=== PATIENT | male | born 1950 | race Caucasian/White ===

== ENCOUNTER → 2016-08-23 | Outpatient (CLI) | payer BC ==
[2015-07-02 10:38] VITALS: BP 113/59
[~2016-08-23] MED LIST: AMLO10TA2 PO; ASPI325T4 PO; ASPI81TA2 PO; ATOR40TA59 PO; CARV3.12 PO; GLIM2TAB2 PO; LOSA100T6 PO; LOSA1TAB17 PO; METH4TAB2 PO; PRAS10TA4 PO
--- NOTE | 2016-08-23 13:04 | CARD ---
APPROVED REPORT EXAM: Two-dimensional and M-mode echocardiogram with Doppler and color Doppler. Other Information Quality : GoodHR: 57bpm Rhythm : Bradycardia INDICATION Cardiac Disease: CAD Chest Pain RISK FACTORS Hypertension 2D DIMENSIONS RVDd2.7 (2.9-3.5cm)Left Atrium(2D)3.6 (1.6-4.0cm) IVSd1.0 (0.7-1.1cm)Aortic Root(2D)3.2 (2.0-3.7cm) LVDd5.1 (3.9-5.9cm)LVOT Diameter2.3 (1.8-2.4cm) PWd1.0 (0.7-1.1cm)LVDs3.5 (2.5-4.0cm) FS (%) 30.2 %SV69.8 ml LVEF(%)57.3 (>50%) Aortic Valve AoV Peak Anshu.128.9cm/sAoV VTI28.3cm AO Peak GR.6.6mmHgLVOT Peak Anshu.115.5cm/s AO Mean GR.4mmHgAVA (VMAX)3.76cm2 Mitral Valve MV E Wfbznils47.8cm/sMV E Peak Gr.2mmHg MV DECEL [id number] A Vrbjvrry66.0cm/s MV E Mean Gr.1mmHgE/A Ratio1.3 MV A Tcrpdjnd230cm Pulmonary Valve PV Peak Arnuszlt99.0cm/s Tricuspid Valve TR P. Jevjtqdv716ye/sTR Peak Gr.25mmHg Pulmonary Vein S1 Knvounau99.0cm/sD2 Vdkjykgt93.6cm/s PVa jwlspwdd75vxcb LEFT VENTRICLE The left ventricle is normal size. There is normal left ventricular wall thickness. The left ventricu lar systolic function is normal. The Ejection Fraction is 55-60%. There is normal LV segmental wall m otion. The left ventricular diastolic function and filling is normal for age. RIGHT VENTRICLE The right ventricle is normal size. There is normal right ventricular wall thickness. The right ventr icular systolic function is normal. ATRIA The left atrium size is normal. The right atrium size is normal. The interatrial septum is intact wit h no evidence for an atrial septal defect or patent foramen ovale as noted on 2-D or Doppler imaging. AORTIC VALVE The aortic valve is mildly sclerotic. The aortic valve is trileaflet. Doppler and Color Flow revealed trace aortic regurgitation. There is no significant aortic valvular stenosis. MITRAL VALVE Mitral annular calcification is mild. The mitral valve leaflets are thickened. There is no evidence o f mitral valve prolapse. There is no mitral valve stenosis. Doppler and Color Flow revealed trace martinez ral regurgitation. TRICUSPID VALVE Doppler and Color Flow revealed trace tricuspid regurgitation. The pulmonary artery systolic pressure is estimated at 28 mmHg. There is no pulmonary hypertension. PULMONIC VALVE Doppler and Color Flow revealed no pulmonic valvular regurgitation. There is no pulmonic valvular patsy nosis. GREAT VESSELS The aortic root is normal in size. The ascending aorta is normal in size. The pulmonary artery is nor mal. The IVC is normal in size and collapses >50% with inspiration. PERICARDIAL EFFUSION There is no evidence of significant pericardial effusion. Critical Notification Critical Value: No <Conclusion> The left ventricular systolic function is normal. The Ejection Fraction is 55-60%. There is normal LV segmental wall motion. Trace aortic regurgitation. Trace mitral regurgitation. Trace tricuspid regurgitation. The pulmonary artery systolic pressure is estimated at 28 mmHg. There is no evidence of significant pericardial effusion.
== END | disposition home or self-care (01) ==
LOC: ECHO 08:57
PROVIDERS: ATTEND Internal Medicine Cardiovascular Disease
DX: I08.1 Rheumatic disorders of both mitral and tricuspid valves (principal); R07.9 Chest pain, unspecified
CPT/HCPCS: 93306

== ENCOUNTER → 2017-11-01 | Outpatient (CLI) | payer MEDICARE, BC ==
[~2017-11-01] MED LIST changes: -AMLO10TA2 PO; -ASPI325T4 PO; -ASPI81TA2 PO; -ATOR40TA59 PO; -CARV3.12 PO; -GLIM2TAB2 PO; -LOSA100T6 PO; -LOSA1TAB17 PO; -METH4TAB2 PO; -PRAS10TA4 PO; +REGADENOSON 0.4 MG/5 ML DISP.SYRIN. IV
== END | disposition home or self-care (01) ==
LOC: NM 11:31
DX: I25.10 Atherosclerotic heart disease of native coronary artery without angina pectoris (principal); I10 Essential (primary) hypertension; E11.9 Type 2 diabetes mellitus without complications; E78.5 Hyperlipidemia, unspecified; E78.00 Pure hypercholesterolemia, unspecified
CPT/HCPCS: 78452; 93017; 96374; 96375; 96376; A9500; J2785

== ENCOUNTER → 2018-08-19 | Outpatient (CLI) | payer MEDICARE, BC ==
[2015-07-02 10:38] VITALS: BP 113/59
[~2018-08-19] MED LIST changes: +AMLO10TA8 PO; +ASPI-630 PO; +ASPI325T8 PO; +ATOR40TA59 PO; +CARV3.12 PO; +GLIM2TAB2 PO; +LOSA100T14 PO; +LOSA1TAB22 PO; +METH4TAB2 PO; +PRAS10TA9 PO; -REGADENOSON 0.4 MG/5 ML DISP.SYRIN. IV
--- NOTE | 2018-08-19 14:58 | KCIC ---
MR of the left knee HISTORY: Previous meniscal repair 25 years ago. Chronic left knee pain for 9 months. Pain is generalized. TECHNIQUE: Routine multiplanar sequences are obtained. FINDINGS: There is a degenerative tear of the medial meniscus. No evidence of a lateral meniscal tear. The anterior cruciate ligament is intact. There is mild mass effect upon the ligament by a lateral femoral sidewall osteophyte from the femur. Posterior cruciate ligament is intact. Medial collateral ligament is intact. Iliotibial band unremarkable. Fibular collateral ligament, biceps femoris tendon and popliteus tendon are intact. The extensor mechanism is intact. No acute retinacular injury. Small joint effusion. No evidence of osteochondral loose body. There is primary osteoarthritis about the knee. This is most severe at the medial joint where there is severe cartilage loss and flattening of the subchondral bone surface. Mild subcutaneous edema at the anterior knee. IMPRESSION: 1. Medial meniscal tear. 2. Primary osteoarthritis at all compartments but particularly severe at the medial joint. Electronically signed by: Lei Vail MD (08/19/2018 2:55 PM) [facility]
== END | disposition home or self-care (01) ==
LOC: KCIC MRI 10:46
PROVIDERS: ATTEND Orthopaedic Surgery
DX: S83.242A Other tear of medial meniscus, current injury, left knee, initial encounter (principal); M17.12 Unilateral primary osteoarthritis, left knee; M25.462 Effusion, left knee; M94.261 Chondromalacia, right knee; X58.XXXA Exposure to other specified factors, initial encounter; Y93.89 Activity, other specified; Y92.89 Other specified places as the place of occurrence of the external cause; Y99.8 Other external cause status
CPT/HCPCS: 73721

== ENCOUNTER → 2018-11-13 | Outpatient (CLI) | payer MEDICARE, BC ==
[2015-07-02 10:38] VITALS: BP 113/59
[~2018-11-13] MED LIST changes: +REGADENOSON 0.4 MG/5 ML DISP.SYRIN. IV ONE
--- NOTE | 2018-11-13 13:35 | RAD ---
MR#: [id number] Date of Study: 11/13/2018 Ordering Physician: LAKISHA REYES Referring Physician: YUDY VELEZ Tech: RT Serena Daily) (N) APPROVED REPORT Test Type: Pharmacological Stress Nurse/Tech: Sobeida Lopez RN Test Indications: CAD Cardiac History: Diabetes,stent 3.5 years ago Medications: See Electronic Medical Record Medical History: See Electronic Medical Record Resting ECG: SB Resting Heart Rate: 54 bpm Resting Blood Pressure: 105/64mmHg Pretest Chest Pain: No chest pain Nurse/Tech Notes S1,S2 and lungs are clear to auscultation. Consent: The procedure was explained to the patient in lay terms. Informed consent was witnessed. Kory eout was entered into [employer]. History and Stress Test performed by RT Serena Jorge) (N) Pharm. Details Pharmacologic stress testing was performed using 0.4mg per 5ml of regadenoson given intravenously ove r 7-10 seconds. Stress Symptoms Dyspnea,Dizziness POST EXERCISE Reason for Termination: Infusion complete Target HR: No Max HR: 89 bpm Max Blood Pressure: 126/71mmHg Blood Pressure response to exercise: Normal blood pressure response during stress. Heart Rate response to exercise: WNL Chest Pain: No. Arrhythmia: No. ST Change: No. INTERPRETATION Stress EKG Conclusion: The baseline EKG shows a sinus rhythm with mild nonspecific ST-T wave changes. The stress EKG shows no significant changes from baseline. No EKG evidence of stress-induced ischemia. Imaging Protocol IMAGE PROTOCOL: Rest Tc-99m/stress Tc-99m 1 day Rest: Stress: Viability: Radiopharm.Tc99m QsgdfctykBv47t Sestamibi Mmmw83nAi 32mCi Duration 15min. 15min. Img Date 11/13/2018 11/13/2018 Inj-Img Burh38lod. 60min. Rest Admin Site:IV - Left AntecubitalAdministrator:RT Killian (Hakan)(N) Stress Admin Site: IV - Left AntecubitalAdministrator: RT Serena Jorge)(N) STRESS DATA End Diast. Vol.114.0mlLVEDV index BSA56.0ml End Syst. Vol.31.0mlLVESV index BSA15.0ml Myocardial Pvpg447.0gEject. Qierdjei73.0% Stress Scores Regional WT0.00Summed WT0.00 Regional WM0.00Summed WM1.00 LV Perfusion The stress scans showed no significant defects. The rest scans showed no significant defects. Nuclear imaging shows no reversible ischemia or infarct. Wall Motion Left ventricular systolic function is normal with no regional wall motion abnormalities and an ejecti on fraction of greater than 70%. LV Perf. Quant 17 Seg. SSS0.00 17 Seg. SRS0.00 17 Seg. SDS0.00 Stress Defect Extent (% LAD)0.00Rest Defect Extent (% LAD)0.00Rev. Defect Extent (% LAD)0.00 Stress Defect Extent (% LCX) 0.00Rest Defect Extent (% LCX)0.00Rev. Defect Extent (% LCX)0.00 Stress Defect Extent (% RCA)0.00Rest Defect Extent (% RCA)0.00Rev. Defect Extent (% RCA)0.00 Stress Defect Extent (% JOHN)0.00Rest Defect Extent (% JOHN)0.00Rev. Defect Extent (% JOHN)0.00 Conclusion 1. No EKG evidence of stress-induced ischemia. 2. Nuclear imaging shows no reversible ischemia or infarct. 3. Normal LV systolic function with an ejection fraction of greater than 70%. 4. Low risk Lexiscan nuclear stress test. Signed by : Rosales Triplett MD Electronically Approved : 11/13/2018 13:34:48
== END | disposition home or self-care (01) ==
LOC: ECHO 08:53
PROVIDERS: ATTEND Internal Medicine Cardiovascular Disease
DX: I25.10 Atherosclerotic heart disease of native coronary artery without angina pectoris (principal); E11.9 Type 2 diabetes mellitus without complications; Z95.818 Presence of other cardiac implants and grafts
CPT/HCPCS: 78452; 93017; A9500; J2785

== ENCOUNTER → 2019-11-13 | Outpatient (CLI) | payer MEDICARE, BC ==
[2015-07-02 10:38] VITALS: BP 113/59
[~2019-11-13] MED LIST changes: -GLIM2TAB2 PO; +GLIM2TAB7 PO; -REGADENOSON 0.4 MG/5 ML DISP.SYRIN. IV ONE
--- NOTE | 2019-11-13 11:00 | CARD ---
MR#: [id number] Date of Study: 11/13/2019 Ordering Physician: LAKISHA REYES, Referring Physician: LAKISHA REYES, Tech: Marcie Busbydaniel APPROVED REPORT EXAM: Two-dimensional and M-mode echocardiogram with Doppler and color Doppler. Other Information Quality : AverageHR: 63bpm INDICATION Cardiac Disease: CAD RISK FACTORS Hypertension Hyperlipidemia Diabetes 2D DIMENSIONS RVDd3.9 (2.9-3.5cm)Left Atrium(2D)4.0 (1.6-4.0cm) IVSd1.4 (0.7-1.1cm)Aortic Root(2D)3.5 (2.0-3.7cm) LVDd5.2 (3.9-5.9cm)LVOT Diameter2.1 (1.8-2.4cm) PWd1.1 (0.7-1.1cm)LVDs2.8 (2.5-4.0cm) FS (%) 45.5 %SV100.1 ml LVEF(%)76.5 (>50%) Aortic Valve AoV Peak Anshu.137.9cm/sAoV VTI27.1cm AO Peak GR.7.6mmHgLVOT Peak Anshu.115.9cm/s LVOT VTI 25.98cmAO Mean GR.4mmHg KAM (VMAX)2.40yb6WLW (VTI)3.22cm2 AI P 1/2 Yway443ap Mitral Valve MV E Nkhgskym43.9cm/sMV DECEL XMSU891wk MV A Xmerqwur24.0cm/sMV E Mean Gr.2mmHg MV CEO59nsY/A Ratio0.9 MVA (PHT)4.36cm2 TDI E/Lateral E'7.2E/Medial E'8.9 Pulmonary Valve PV Peak Pdlubpdc95.0cm/sPV Peak Grad.3mmHg Tricuspid Valve TR P. Jsbqcfox607wo/sRAP PSENQOMH4urLb TR Peak Gr.16ncYyZAET55cwDh Pulmonary Vein S1 Qfacaqjm93.5cm/sD2 Zuyicggs22.5cm/s PVa nzvrxyha045rrrz LEFT VENTRICLE The left ventricle is normal size. There is borderline to mild concentric left ventricular hypertroph y. The left ventricular systolic function is normal. The Ejection Fraction is 55-60%. There is normal LV segmental wall motion. Transmitral Doppler flow pattern is Grade I-abnormal relaxation pattern. RIGHT VENTRICLE The right ventricle is normal size. There is normal right ventricular wall thickness. The right ventr icular systolic function is normal. ATRIA The left atrium size is normal. The right atrium size is normal. The interatrial septum is intact wit h no evidence for an atrial septal defect or patent foramen ovale as noted on 2-D or Doppler imaging. AORTIC VALVE The aortic valve is thickened but opens well. Doppler and Color Flow revealed trace aortic regurgitat ion. There is no significant aortic valvular stenosis. Calculated aortic valve area is 3.07 cm2 with maximum pressure gradient of 10 mmHg and mean pressure gradient of 5 mmHg. MITRAL VALVE The mitral valve is normal in structure and function. There is no evidence of mitral valve prolapse. There is no mitral valve stenosis. Doppler and Color-flow revealed trace mitral regurgitation. TRICUSPID VALVE The tricuspid valve is normal in structure and function. Doppler and Color Flow revealed trace tricus pid regurgitation with an estimated PAP of 27 mmHg. There is no tricuspid valve stenosis. PULMONIC VALVE The pulmonic valve is not well visualized. Doppler and Color Flow revealed trace pulmonic valvular re gurgitation. GREAT VESSELS The aortic root is normal in size. The IVC was not visualized. PERICARDIAL EFFUSION There is no evidence of significant pericardial effusion. Critical Notification Critical Value: No <Conclusion> The left ventricular systolic function is normal. The Ejection Fraction is 55-60%. There is normal LV segmental wall motion. Transmitral Doppler flow pattern is Grade I-abnormal relaxation pattern. Trace mitral regurgitation. Trace tricuspid regurgitation with an estimated PAP of 27 mmHg. There is no evidence of significant pericardial effusion. Signed by : Lakisha Reyes, Electronically Approved : 11/13/2019 10:59:40
== END | disposition home or self-care (01) ==
LOC: ECHO 08:32
PROVIDERS: ATTEND Internal Medicine Cardiovascular Disease
DX: I25.10 Atherosclerotic heart disease of native coronary artery without angina pectoris (principal); I51.7 Cardiomegaly
CPT/HCPCS: 93306

== ENCOUNTER → 2019-11-28 | Outpatient (CLI) | payer MEDICARE, BC ==
[2015-07-02 10:38] VITALS: BP 113/59
[~2019-11-28] MED LIST changes: +REGADENOSON 0.4 MG/5 ML DISP.SYRIN. IV ONE
--- NOTE | 2019-11-28 16:32 | RAD ---
MR#: [id number] Date of Study: 11/28/2019 Ordering Physician: ALKISHA REYES, Referring Physician: YUDY VELEZ Tech: La Nena Roach NMTCB, ARRT (R) (N) APPROVED REPORT Test Type: Pharmacological Stress Nurse/Tech: Nesha Barnes R.N. Test Indications: CAD, "fatigue" Cardiac History: cardiac stent,htn,DM Medications: See Electronic Medical Record Medical History: See Electronic Medical Record Resting ECG: SB, having abnormal T waves- very flat to upright and inverted in same lead Resting Heart Rate: 53 bpm Resting Blood Pressure: 116/ 68mmHg Pretest Chest Pain: No chest pain Nurse/Tech Notes S1S2, lungs cta Consent: The procedure was explained to the patient in lay terms. Informed consent was witnessed. Kory eout was entered into [employer]. History and Stress Test performed by ALESIA Metz ARRT (R) (N) Pharm. Details Pharmacologic stress testing was performed using 0.4mg per 5ml of regadenoson given intravenously ove r 7-10 seconds. Stress Symptoms SOA, the fatigue feeling he has been getting POST EXERCISE Reason for Termination: Infusion complete Max HR: 84 bpm Max Blood Pressure: 122/67mmHg Blood Pressure response to exercise: Normal blood pressure response during stress. Heart Rate response to exercise: wnl Chest Pain: No. Arrhythmia: No. ST Change: Yes. slight ST elevation <1mm in lead V2 INTERPRETATION Stress EKG Conclusion: No evidence of stress induced EKG changes Imaging Protocol IMAGE PROTOCOL: Rest Tc-99m/stress Tc-99m 1 day Rest: Stress: Viability: Radiopharm.Tc99m YyvuktticDd62b Sestamibi Tywh34uMw 33mCi Duration 15min. 10min. Img Date 11/28/2019 11/28/2019 Inj-Img Xqzq82sff. 60min. Rest Admin Site:IV - Right AntecubitalAdministrator:ALESIA Metz ARRT (R)(N) Stress Admin Site: IV - Right AntecubitalAdministrator: ROBERTH MetzLilian, ARRT (R)(N) STRESS DATA End Diast. Vol.128.0mlAv. Heart Rate66.0bpm End Syst. Vol.33.0mlCO Index BSA0.0L/min Myocardial Psjm327.0gEject. Xczbtmiw55.0% Stress Rates Pk. Fill Rate2.93EDV/secLVtime Pk. Fill 160.30msec Pk. Empty Rate3.90ESV/secLVtime Pk. Lkyud337.20msec 05/02 Pk. Fill1.87EDV/sec Stress Scores Regional WT0.00Summed WT0.00 Regional WM0.00Summed WM1.00 The rest and stress images show normal perfusion, normal contraction and thickening. LV Perf. Quant 17 Seg. SSS1.00 17 Seg. SRS4.00 17 Seg. SDS0.00 Stress Defect Extent (% LAD)0.00Rest Defect Extent (% LAD)0.00Rev. Defect Extent (% LAD)0.00 Stress Defect Extent (% LCX) 5.00Rest Defect Extent (% LCX)0.00Rev. Defect Extent (% LCX)0.00 Stress Defect Extent (% RCA)0.00Rest Defect Extent (% RCA)0.00Rev. Defect Extent (% RCA)0.00 Stress Defect Extent (% JOHN)0.90Rest Defect Extent (% JOHN)0.00Rev. Defect Extent (% JOHN)0.00 Other Information Quality:Average Risk Assessment: Low Risk Conclusion 1. No evidence of EKG changes with stress testing. 2. Normal perfusion at stress/rest. 3. Low risk study. 4. EF > 60%. Signed by : Rd Ramirez, Electronically Approved : 11/28/2019 16:32:07
== END ==
LOC: NM 08:46
PROVIDERS: ATTEND Internal Medicine Cardiovascular Disease
DX: I25.10 Atherosclerotic heart disease of native coronary artery without angina pectoris (principal)
CPT/HCPCS: 78452; 93017; A9500; J2785

== ENCOUNTER → 2021-02-24 | Outpatient (CLI) | payer MEDICARE, BC ==
[2015-07-02 10:38] VITALS: BP 113/59
[~2021-02-24] MED LIST changes: +AMLO-187 PO; -AMLO10TA8 PO; -REGADENOSON 0.4 MG/5 ML DISP.SYRIN. IV ONE
--- NOTE | 2021-02-25 13:15 | CARD ---
MR#: [id number] Date of Study: 02/24/2021 Ordering Physician: LAKISHA REYES, Referring Physician: LAKISHA REYES, Tech: Marcie Messina [facility] APPROVED REPORT EXAM: Two-dimensional and M-mode echocardiogram with Doppler and color Doppler. Other Information Quality : AverageHR: 80bpm Technically limited study due to body habitus. INDICATION Cardiac Disease: CAD RISK FACTORS Hypertension Hyperlipidemia Diabetes 2D DIMENSIONS RVDd3.2 (2.9-3.5cm)Left Atrium(2D)3.6 (1.6-4.0cm) IVSd0.9 (0.7-1.1cm)Aortic Root(2D)3.2 (2.0-3.7cm) LVDd5.5 (3.9-5.9cm)LVOT Diameter2.0 (1.8-2.4cm) PWd1.2 (0.7-1.1cm)LVDs3.3 (2.5-4.0cm) FS (%) 40.5 %SV106.0 ml LVEF(%)70.6 (>50%) Aortic Valve AoV Peak Anshu.159.5cm/sAoV VTI31.2cm AO Peak GR.10.2mmHgLVOT Peak Anshu.144.0cm/s LVOT VTI 26.53cmAO Mean GR.5mmHg KAM (VMAX)2.95jr2BYH (VTI)2.75cm2 Mitral Valve MV E Umelxocr69.1cm/sMV DECEL YMRK961qx MV A Wzbfynzr31.9cm/sMV E Mean Gr.2mmHg MV AHO84pzT/A Ratio1.0 MVA (PHT)3.48cm2 TDI E/Lateral E'6.6E/Medial E'9.0 Pulmonary Valve PV Peak Tfqwinhq50.7cm/sPV Peak Grad.3mmHg Tricuspid Valve TR P. Ubtpspcx693yk/sRAP FODTORKY3cgWq TR Peak Gr.72ziVwYWOD73hfCf Pulmonary Vein S1 Beamdoky32.2cm/sD2 Hycucxfv76.1cm/s PVa aagkqjgt810rzut LEFT VENTRICLE The left ventricle is normal size. There is borderline to mild concentric left ventricular hypertroph y. The left ventricular systolic function is normal and the ejection fraction is within normal range. The Ejection Fraction is 60-65%. There is normal LV segmental wall motion. Tissue Doppler imaging re veals mild left ventricular diastolic dysfunction. RIGHT VENTRICLE The right ventricle is normal size. There is normal right ventricular wall thickness. The right ventr icular systolic function is normal. There is a pacing lead noted in the RA/RV. ATRIA The left atrium size is normal. The right atrium size is normal. The interatrial septum is intact wit h no evidence for an atrial septal defect or patent foramen ovale as noted on 2-D or Doppler imaging. AORTIC VALVE The aortic valve is normal in structure and function. Doppler and Color Flow revealed trace aortic re gurgitation. There is no significant aortic valvular stenosis. Calculated aortic valve area is 2.87 c m2 with maximum pressure gradient of 14 mmHg and mean pressure gradient of 7 mmHg. MITRAL VALVE The mitral valve is normal in structure and function. There is no evidence of mitral valve prolapse. There is no mitral valve stenosis. Doppler and Color Flow revealed no mitral valve regurgitation note d. TRICUSPID VALVE The tricuspid valve is normal in structure and function. Doppler and Color Flow revealed trace tricus pid regurgitation with an estimated PAP of 33 mmHg. There is no tricuspid valve stenosis. PULMONIC VALVE The pulmonic valve is not well visualized. Doppler and Color Flow revealed trace pulmonic valvular re gurgitation. There is no pulmonic valvular stenosis. GREAT VESSELS The aortic root is normal in size. The IVC is normal in size and collapses >50% with inspiration. PERICARDIAL EFFUSION There is no evidence of significant pericardial effusion. Critical Notification Critical Value: No <Conclusion> The left ventricular systolic function is normal and the ejection fraction is within normal range. Th e Ejection Fraction is 60-65%. There is normal LV segmental wall motion. There is a pacing lead noted in the RA/RV. Technically difficult study. Signed by : Rd Ramirez, Electronically Approved : 02/25/2021 13:14:47
== END ==
LOC: ECHO 13:44
PROVIDERS: ATTEND Internal Medicine Cardiovascular Disease
DX: I11.9 Hypertensive heart disease without heart failure (principal); I25.10 Atherosclerotic heart disease of native coronary artery without angina pectoris
CPT/HCPCS: 93306